=== PATIENT | female | born 1960 | race Caucasian/White ===

== ENCOUNTER 2016-06-20 11:02 | Emergency (ER) | payer OTHER ==
[~2016-06-20 11:02] MED LIST: ATIVAN0.5 M1 PO; CIPRO250 M1 PO; EPIPEN 2-PAK1 MG/ML IM; PREDNISONE10 M2 PO; PYRIDIUM200 M1 PO
--- NOTE | 2016-06-20 11:25 | ED NECK/BACK PAIN COMPLAINT ---
History of Present Illness General Chief Complaint: Low Back Pain/Injury Stated Complaint: LOW BACK PAIN Source: patient, old records Exam Limitations: language barrier Vital Signs & Intake/Output Vital Signs & Intake/Output Vital Signs Date Time Temp Pulse Resp B/P Pulse O2 O2 Flow FiO2 Ox Delivery Rate 06/20 1109 97.9 83 20 114/74 98 Room Air Allergies Coded Allergies: venom-honey bee (BEE VENOM (HONEY BEE)) (Severe, TROUBLE BREATHING 11/24/15) NO KNOWN ALLERGIES (11/24/15) Reconcile Medications Acetaminophen (Tylenol Arthritis) 650 MG TABLET.ER 1 TAB PO PRN PAIN ( Reported) Epinephrine (Epipen 2-Michi Auto-Injector) 1 MG/ML KIT 0.3 mg IM PRN ANAPHYLAXIS Ibuprofen 600 MG TABLET 1 TAB PO Q6 PRN PAIN with food Oxycodone HCl/Acetaminophen (Percocet 5-325 MG Tablet) 5 MG-325 MG TABLET 1 TAB PO Q4-6 PRN BREAKTHROUGH Tamsulosin HCl (Flomax) 0.4 MG CAP.ER.24H 1 CAP PO DAILY KIDNEY STONE Tramadol HCl 50 MG TABLET 1 TAB PO BIDP PRN PAIN (Reported) Triage Note: PT TO ED C/O LOWER BACK PAIN X 2 DAYS. DENIES ANY INJURY. HAS BEEN TAKING TYLENOL WITH NO RELIEF. Triage Nurses Notes Reviewed? yes Onset: Abrupt Duration: day(s): (2) Timing: multiple episodes today Location: LEFT FLANK Radiation: none Loss of Consciousness: no loss of consciousness HPI: This is a 56-year-old female who presents to the ER with chief complaint of left flank pain for 2 days. No nausea or vomiting, fever or chills. Denies any dysuria. She states that she took Tylenol without relief. She took some of her friend's tramadol which gave her some relief. Last night secondary to pain she wasn't able to sleep at all. Positive history of blood in her urine one month ago. She states that she had some imaging done but is unsure of what. No known history of kidney stones or kidney issues. Upon looking at the history in the computer patient was seen and evaluated for pyelonephritis in April. Past History Travel History Traveled to [place] past 21 day No Medical History Any Pertinent Medical History? 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 No Review of Systems Review of Systems Constitutional: Denies: chills, fever. Eyes: Reports: no symptoms. Ears, Nose, Throat, Mouth: Reports: no symptoms. Respiratory: Denies: cough, short of breath. Cardiovascular: Denies: chest pain, palpitations. Gastrointestinal/Abdominal: Denies: abdominal pain, nausea, vomiting. Musculoskeletal: Reports: back pain, muscle pain. Skin: Reports: no symptoms. Neurological/Psychological: Denies: anxiety, ataxia, confusion. All Other Systems: Reviewed and Negative Physical Exam Physical Exam General Appearance: well developed/nourished, alert, awake, mild distress Head: atraumatic Eyes: Bilateral: PERRL, EOMI. Ears, Nose, Throat, Mouth: hearing grossly normal, dental injury, moist mucous membrane Neck: normal inspection, supple, full range of motion Respiratory: normal breath sounds Cardiovascular: regular rate/rhythm Peripheral Pulses: 2+ radial (R), 2+ radial (L) Gastrointestinal: soft, non-tender Back: normal inspection, CVA tenderness (L) Extremities: normal range of motion Straight Leg Raising: Right: Negative. Left: Negative. Neurologic/Psych: awake, alert, oriented x 3, normal mood/affect Skin: intact, normal color, warm/dry Progress Differential Diagnosis: herniated disc, myofascial strain, pyelo/UTI, ureterolithiasis, COMPRESSION FX Plan of Care: Orders Procedure Date/time Status URINALYSIS 06/20 1131 Complete COMPREHENSIVE METABOLIC PANEL 06/20 1131 Complete CBC WITHOUT DIFFERENTIAL 06/20 1131 Complete Laboratory Tests 06/20/16 1138: Anion Gap 8, Estimated GFR > 60, BUN/Creatinine Ratio 21.4, Glucose 88, Calcium 9.4, Total Bilirubin 0.5, AST 24, ALT 29, Alkaline Phosphatase 97, Total Protein 7.4, Albumin 4.2, Globulin 3.2, Albumin/Globulin Ratio 1.3, CBC w Diff NO MAN DIFF REQ, RBC 4.35, MCV 88.7, MCH 29.8, RDW 14.5, MPV 9.1, Gran % 47.7, Lymphocytes % 37.8, Monocytes % 11.3 H, Eosinophils % 2.7, Basophils % 0.5, Absolute Granulocytes 3.0, Absolute Lymphocytes 2.4, Absolute Monocytes 0.7 H, Absolute Eosinophils 0.2, Absolute Basophils 0, PUBS MCHC 33.6 06/20/16 1137: Urine Color YEL, Urine Clarity CLEAR, Urine pH 6.5, Ur Specific [place] 1.010, Urine Protein NEG, Urine Ketones NEG, Urine Nitrite NEG, Urine Bilirubin NEG, Urine Urobilinogen 0.2, Ur Leukocyte Esterase NEG, Ur Microscopic SEDIMENT EXAMINED, Urine RBC RARE, Urine Hemoglobin TRACE-LYSED, Urine Glucose NEG Diagnostic Imaging: Viewed by Me: CT Scan. Discussed w/RAD: CT Scan. Radiology Impression: PATIENT: TAQUERIA CHENG PRESENT AGE: 56 PATIENT ACCOUNT NO: [id number] : 60 LOCATION: ER ORDERING PHYSICIAN: BAN SIERRA MD SERVICE DATE: 06/20/16 EXAM TYPE: CAT - CT ABD & PELVIS W/O IV CONTRAS EXAMINATION: CT ABDOMEN AND PELVIS WITHOUT CONTRAST CLINICAL INFORMATION: Left flank pain with hematuria. Suspect nephrocalcinosis. COMPARISON: None TECHNIQUE: Multidetector volumetric imaging was performed from the superior aspect of the liver through the pubic symphysis. Sagittal and coronal reformatted images were obtained on the technologist's workstation. DLP: 273 mGy-cm FINDINGS: LUNG BASES: The visualized lung bases are unremarkable. LIVER, GALLBLADDER, AND BILIARY TREE: The liver is normal in size, shape, and attenuation. No focal hepatic lesion or biliary ductal dilatation is present. The gallbladder is unremarkable with no evidence of radiopaque gallstones, gallbladder wall thickening, or obvious pericholecystic inflammatory changes. PANCREAS: Unremarkable. SPLEEN: Unremarkable. Accessory splenule is noted adjacent to the superior pole consistent with normal variation. ADRENAL GLANDS: Unremarkable. KIDNEYS AND URETERS: There is mild left hydroureteronephrosis. A definite obstructing calculus is not identified. There are numerous calcifications in the pelvis. The relationship of any of these to the distal ureter is difficult to demonstrated. A calcification on axial image 58 / 20 could represent distal ureteric calculus measuring 0.2 cm. No bladder calculi are demonstrated. There are no intrarenal calculi. BLADDER: Unremarkable. GASTROINTESTINAL TRACT: The stomach and duodenum are unremarkable. No abnormality of the small bowel is demonstrated. There are several mildly prominent mesenteric lymph nodes at the root of the mesentery measuring less than 1 cm in diameter. The colon is unremarkable. The appendix is not identified. There is no evidence for acute appendicitis. ABDOMINAL WALL: No significant hernia is appreciated. LYMPH NODES: No retroperitoneal or pelvic lymphadenopathy is demonstrated. VASCULAR: Limited assessment without contrast. No abnormality demonstrated. PELVIC VISCERA: There are numerous calcified phleboliths in the pelvis. The uterus and adnexa are otherwise unremarkable. There is no free fluid. OSSEOUS STRUCTURES: Unremarkable. IMPRESSION: 1. Mild left hydroureteronephrosis. A definite obstructing calculus is not identified but there are numerous pelvic calcifications which makes assessment difficult. No intrarenal calculi are demonstrated. 2. Otherwise unremarkable. DICTATED BY: TESSY THAYER MD DATE/TIME DICTATED:06/20/161230 ANGIOGRAPHER:URI DATE/TIME TRANSCRIBED:06/20/161230 CONFIDENTIAL, DO NOT COPY WITHOUT APPROPRIATE AUTHORIZATION. <Electronically signed in Other Vendor System> SIGNED BY: TESSY THAYER MD 06/20/16 1309 Departure Departure Time of Disposition: 1318 Disposition: HOME OR SELF CARE Condition: Stable Clinical Impression Primary Impression: Flank pain Referrals: JANNA LUGO,MIKE Perales (PCP/Family) SONYA BRENNAN MD Additional Instructions: Take the Percocet, FLOMAX and ibuprofen as directed. Follow-up with urology specialist listed and with outpatient urology. Drink plenty of fluids. Return to the ER for any changing or worsening symptoms. Departure Forms: Customer Survey General Discharge Information Prescriptions: Current Visit Scripts Ibuprofen 1 TAB PO Q6 PRN PAIN #30 TAB with food Oxycodone HCl/Acetaminophen (Percocet 5-325 MG Tablet) 1 TAB PO Q4-6 PRN BREAKTHROUGH #20 TAB Tamsulosin HCl (Flomax) 1 CAP PO DAILY #14 CAP
[2016-06-20] MEDS ORDERED: TRAMADOL HCL50 M1 PO (11:45)
[2016-06-20] MEDS ORDERED: TYLENOL ARTHRI650 M1 PO (11:45)
[2016-06-20 12:12] LABS: ABSOLUTE BASOPHIL COUNT 0 /CUMM (0.0-0.2); ABSOLUTE EOSINOPHIL COUNT 0.2 /CUMM (0.0-0.7); ABSOLUTE LYMPH COUNT 2.4 /CUMM (1.2-3.4); ABSOLUTE MONOCYTE COUNT 0.7 /CUMM (0.10-0.60); BASOPHIL % 0.5 % (0.0-2.0); EOSINOPHIL % 2.7 % (0-5); GRANULOCYTE % 47.7 % (42.2-75.2); HEMATOCRIT 38.6 % (37-47); MEAN CORPUSCULAR HGB 29.8 PG (27.0-31.0); MEAN CORPUSCULAR HGB CONC 33.6 G/DL (33.0-37.0); MEAN CORPUSCULAR VOLUME 88.7 FL (81.0-99.0); MEAN PLATELET VOLUME 9.1 FL (7.4-10.4); PLATELET COUNT 255 /CUMM (130-400); RBC DISTRIBUTION WIDTH 14.5 % (11.5-14.5); RED BLOOD CELL CT 4.35 /CUMM (4.20-5.40); WHITE BLOOD CELL COUNT 6.3 /CUMM (4.8-10.8)
--- NOTE | 2016-06-20 13:09 | CT SCAN REPORT ---
EXAMINATION: CT ABDOMEN AND PELVIS WITHOUT CONTRAST CLINICAL INFORMATION: Left flank pain with hematuria. Suspect nephrocalcinosis. COMPARISON: None TECHNIQUE: Multidetector volumetric imaging was performed from the superior aspect of the liver through the pubic symphysis. Sagittal and coronal reformatted images were obtained on the technologist's workstation. DLP: 273 mGy-cm FINDINGS: LUNG BASES: The visualized lung bases are unremarkable. LIVER, GALLBLADDER, AND BILIARY TREE: The liver is normal in size, shape, and attenuation. No focal hepatic lesion or biliary ductal dilatation is present. The gallbladder is unremarkable with no evidence of radiopaque gallstones, gallbladder wall thickening, or obvious pericholecystic inflammatory changes. PANCREAS: Unremarkable. SPLEEN: Unremarkable. Accessory splenule is noted adjacent to the superior pole consistent with normal variation. ADRENAL GLANDS: Unremarkable. KIDNEYS AND URETERS: There is mild left hydroureteronephrosis. A definite obstructing calculus is not identified. There are numerous calcifications in the pelvis. The relationship of any of these to the distal ureter is difficult to demonstrated. A calcification on axial image 58 05/23 20 could represent distal ureteric calculus measuring 0.2 cm. No bladder calculi are demonstrated. There are no intrarenal calculi. BLADDER: Unremarkable. GASTROINTESTINAL TRACT: The stomach and duodenum are unremarkable. No abnormality of the small bowel is demonstrated. There are several mildly prominent mesenteric lymph nodes at the root of the mesentery measuring less than 1 cm in diameter. The colon is unremarkable. The appendix is not identified. There is no evidence for acute appendicitis. ABDOMINAL WALL: No significant hernia is appreciated. LYMPH NODES: No retroperitoneal or pelvic lymphadenopathy is demonstrated. VASCULAR: Limited assessment without contrast. No abnormality demonstrated. PELVIC VISCERA: There are numerous calcified phleboliths in the pelvis. The uterus and adnexa are otherwise unremarkable. There is no free fluid. OSSEOUS STRUCTURES: Unremarkable. IMPRESSION: 1. Mild left hydroureteronephrosis. A definite obstructing calculus is not identified but there are numerous pelvic calcifications which makes assessment difficult. No intrarenal calculi are demonstrated. 2. Otherwise unremarkable.
[2016-06-20] MEDS ORDERED: PERCOCET 5-3251 EACH PO (13:20)
[2016-06-20] MEDS ORDERED: IBUPROFEN600 M1 PO (13:20)
[2016-06-20] MEDS ORDERED: FLOMAX0.4 M1 PO (13:22)
[2016-06-20 13:29] VITALS: BP 122/60
== END 2016-06-20 13:27 ==
LOC: ERH 11:02
PROVIDERS: Emergency Medicine
DX: R10.9 Unspecified abdominal pain (principal)
CPT/HCPCS: 74176; 81001; 96372; J1885

== ENCOUNTER → 2016-06-23 | Day surgery (SDC) | payer OTHER ==
[~2016-06-23] VITALS: Ht 160 cm; Wt 65.8 kg
[~2016-06-23] MED LIST changes: +CYCLOBENZAPRINE10 M1 PO; +DILAUDID2 M1 PO; +FLOMAX0.4 M1 PO; +IBUPROFEN600 M1 PO; +MOBIC15 M1 PO; +PERCOCET 5-3251 EACH PO; +PREDNISONE20 M1 PO; +TRAMADOL HCL50 M1 PO; +TYLENOL ARTHRI650 M1 PO
--- NOTE | 2016-06-23 18:35 | Operative Report ---
Operative/Inv Procedure Report Surgery Date: 06/23/16 Name of Procedure: LEFT UVJ STONE ESWL: CYSTOSCOPY WITH LEFT STENT INSERTION. FLUOROSCOPY Pre-Operative Diagnosis: LEFT COLIC SIWTH UVJ STONE, AND LEFT HYDRO. Post-Operative Diagnosis: SAME Estimated Blood Loss: scant Surgeon/Museum Librarian: SONYA BRENNAN MD Anesthesia: moderate sedation Drains: NONE Specimens: NONE Complications: NONE Operative/Procedure Note Note: The patient was taken to the operating room and placed on the ESWL table in supine position. With the patient awake, the patient's left flank was placed over the table cut-out, overlying the dome of the shockwave generator. C-arm fluroscopy, as well as renal US was used to locate the stone, and evaluate the left kidney. The stone was visible on fluroloscopy at the level of the LEFT UPJ. Renal US confimred moderate hydronephrosis without stone seen in the kidney. The left ureter stone was approximate 3 mm in size, and it's position was optimized with fluoroscopy at AP and Oblique views. After adequate anesthesia and antibiotics, the left ureter E.S.W.L. was initiated at low power levels x200 shocks. After noting the patient's tolerance to the shockwaves, the shockwave power level was quickly maximumized. Toward the end of the procedure, the composition of the stone had changed significantly indicating the pulverization of the ureter stone. A total of 3000 shockwaves were delivered to the stone in order to achieve adequate lithotrypsy. Then frog legged, draped and prepped in the usual surgical fashion. A 22 [place]ian cystoscope sheath with a 30 angle lens was inserted into the urethra and into the bladder without difficulty. Upon entering the bladder the bladder was noted to be free of tumor free of stone both orifices in orthotopic position. The left orifice was intubated with a 0.035 Glidewire which advanced into the left renal pelvis without significant difficulty. With this Glidewire a 6 x 22 Bard inlay stent was inserted without difficulty. Once the proximal coil reach the left renal pelvis, the Glidewire was removed and the stent remained in proper place both fluoroscopically and cystoscopically. The bladder was then drained, and the cystoscope was removed. The patient tolerated both procedures well, was awakened, and taken to recovery in satisfactory condition via stretcher. The pt will eventually be dischared to home with pain meds, diet orders, and intructions to catch fragments with straining the urine. The patient is to have follow-up renal ultrasound and KUB in 2 weeks, prior to follow-up visit in my office.. Findings: 3MM LEFT UVJ STONE SHATTERED AT 3000. LARGE AMOUNT OF DARK YELLOW URINE DRAINED AFTER STENT PLACED. Discharge Disposition: PACU CC: MIKA LUGO,SONYA
== END ==
LOC: STS 07:00
DX: N13.2 Hydronephrosis with renal and ureteral calculous obstruction (principal)
CPT/HCPCS: C2617; J1100; J2250; J2405

== ENCOUNTER 2016-06-30 10:37 | Emergency (ER) | payer OTHER ==
[~2016-06-30] VITALS: Ht 160 cm; Wt 65.8 kg
[~2016-06-30 10:37] MED LIST changes: -CYCLOBENZAPRINE10 M1 PO; -DILAUDID2 M1 PO; -MOBIC15 M1 PO; -PREDNISONE20 M1 PO
--- NOTE | 2016-06-30 11:25 | ED NECK/BACK PAIN COMPLAINT ---
History of Present Illness General Chief Complaint: Abdominal Pain/Flank Pain Stated Complaint: LEFT FLANK PAIN Source: patient, family, old records Exam Limitations: no limitations Vital Signs & Intake/Output Vital Signs & Intake/Output Vital Signs Date Time Temp Pulse Resp B/P Pulse O2 O2 Flow FiO2 Ox Delivery Rate 06/30 1311 97.5 68 18 104/68 95 06/30 1056 98.1 87 20 110/73 97 Room Air Room Air Allergies Coded Allergies: venom-honey bee (BEE VENOM (HONEY BEE)) (Severe, TROUBLE BREATHING 11/24/15) NO KNOWN ALLERGIES (11/24/15) Reconcile Medications Acetaminophen (Tylenol Arthritis) 650 MG TABLET.ER 1 TAB PO PRN PAIN ( Reported) Epinephrine (Epipen 2-Michi Auto-Injector) 1 MG/ML KIT 0.3 mg IM PRN ANAPHYLAXIS Hydromorphone HCl (Dilaudid) 2 MG TABLET 1 TAB PO BIDP PRN BREAKTHROUGH PAIN Ibuprofen 600 MG TABLET 1 TAB PO Q6 PRN PAIN with food Oxycodone HCl/Acetaminophen (Percocet 5-325 MG Tablet) 5 MG-325 MG TABLET 1 TAB PO Q4-6 PRN BREAKTHROUGH Tamsulosin HCl (Flomax) 0.4 MG CAP.ER.24H 1 CAP PO DAILY KIDNEY STONE Tramadol HCl 50 MG TABLET 1 TAB PO BIDP PRN PAIN (Reported) Triage Note: PT RETURNS TO ED WITH "KIDNEY PAIN", PER PT HAD LITHOTRYPSY AND STENTS PLACED BY DR SOSA ON WEDNESDAY. Triage Nurses Notes Reviewed? yes Onset: Abrupt Duration: day(s): (7), constant Timing: recent history Quality/Severity: moderate, severe, sharpness Location: L FLANK Radiation: LEFT ABD Method of Injury: unknown, KDINEY STONE Loss of Consciousness: no loss of consciousness Modifying Factors: other (PALPATION) Associated Symptoms: DENIES HPI: 66-year-old female with history of kidney stones use history is significant in that she had a lithotripsy and ureteral stent placed 7 days ago which was removed the next day after she was found to have an obstructing kidney stone. She states since then she's had persistent left flank pain that is radiating into the left side of her abdomen constant aching throbbing and sharp 10 out of 10. She's been taking her Percocet without improvement. She denies any nausea vomiting or diarrhea. She denies any urinary symptoms hematuria urgency frequency. She called her urologist today Dr. Sosa who ordered an outpatient x-ray however the patient came here after the x-ray due to her pain. She denies any fevers chills. There are no modifying factors or associated symptoms otherwise. She denies fever chills. No recent injury or trauma (DONNA VANEGAS) Past History Travel History Traveled to [place] past 21 day No Medical History Any Pertinent Medical History? 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 No (DONNA VANEGAS) Review of Systems Review of Systems Constitutional: Reports: see HPI. All Other Systems: Reviewed and Negative Comments Review of systems: See HPI, All other systems negative. Constitutional, no chills no fever, no malaise HEENT: No visual changes no sore throat no congestion Cardiovascular: No chest pain , no palpitation , Skin, no jaundice no rashes, no change in skin Respiratory: No dyspnea no cough no sputum GI: No nausea no vomiting, no diarrhea, no bloating/constipation : No dysuria No hematuria, no frequency, Muscle skeletal: No joint pain, no joint swelling, back pain, no neck pain, Neurologic: No numbness no headache Psych: No stress. Heme/endocrine: No bruising no bleeding Immunology: No lymphadenopathy (DONNA VANEGAS) Physical Exam Physical Exam Neck: normal inspection, supple, full range of motion Comments: Well-developed well-nourished person in no acute distress HEENT: Normal EENT exam; PERRL, EOMI. HEAD is atraumatic. moist mucous membranes. Neck: Supple, normal range of motion Back: Nontender, LEFT CVA tenderness. Full range of motion Cardiovascular: Regular rate and rhythms no murmurs rubs Respiratory: No respiratory distress. Patient speaking in full complete sentences. Breath sounds clear to auscultation bilaterally: NO W/R/R Abdomen: Soft, nontender nondistended, no appreciable organomegaly. Normal bowel sounds. No rebound/guarding, Extremity: No edema, full range of motion of extremities, negative straight leg raise bilaterally Neuro: Alert oriented x3, motor sensory normal, There were no obvious focal neurologic abnormalities. Skin: No appreciable rash on exposed skin, skin is warm and dry. Psych: Mood and affect is normal, memory and judgment is normal. (RAJIV YO,DONNA) Progress Differential Diagnosis: herniated disc, pyelo/UTI, sciatica, spinal cord inj, T/ L spine injury, ureterolithiasis, sepsis Plan of Care: Orders Procedure Date/time Status CBC WITHOUT DIFFERENTIAL 06/30 1130 Complete BASIC METABOLIC PANEL 06/30 1130 Complete URINALYSIS 06/30 1112 Complete Laboratory Tests 06/30/16 1145: Anion Gap 12, Estimated GFR > 60, BUN/Creatinine Ratio 24.3, Glucose 91, Calcium 9.5, CBC w Diff NO MAN DIFF REQ, RBC 4.43, MCV 88.4, MCH 29.3, RDW 14.2, MPV 8.5 , Gran % 50.3, Lymphocytes % 35.1, Monocytes % 11.4 H, Eosinophils % 2.6, Basophils % 0.6, Absolute Granulocytes 2.7, Absolute Lymphocytes 1.9, Absolute Monocytes 0.6, Absolute Eosinophils 0.1, Absolute Basophils 0, PUBS MCHC 33.1 06/30/16 1122: Urine Color JUDI, Urine Clarity CLEAR, Urine pH 6.0, Ur Specific [place] <= 1.005, Urine Protein NEG, Urine Ketones NEG, Urine Nitrite POS H, Urine Bilirubin NEG, Urine Urobilinogen 0.2, Ur Leukocyte Esterase NEG, Ur Microscopic SEDIMENT EXAMINED, Urine RBC RARE, Urine Hemoglobin NEG, Urine Glucose NEG Labs ordered old records reviewed ultrasound ordered patient medicated with Toradol 30 mgIV 06/30/2016 12:50:58 PM patient reports mild improvement in her pain I discussed with her and her at length all of her lab results and ultrasound findings, pending callback from Dr. Sosa patient medicated morphine 4 mg IV IV fluids 06/30/2016 1:22:27 PM I discussed with the patient plan of care she reports the morphine has significantly helped with pain pending callback from urology 06/30/2016 1:55:41 PM case was discussed with Dr. Sosa who advised outpatient follow-up with his office for appointment tomorrow. Discussed with the patient and her plan of care per prescription for Dilaudid was provided I informed him not to take any other pain medication if they're going to take this for breakthrough pain, I advised return anytime sooner with any concerns patient reports her symptoms have greatly improved with the morphine she is ambulatory here with steady gait I answered all their questions they'll follow up with urology cleared for discharge (DONNA VANEGAS) Diagnostic Imaging: Viewed by Me: Ultrasound. Discussed w/RAD: Ultrasound. Radiology Impression: PATIENT: TAQUERIA CHENG PRESENT AGE: 56 PATIENT ACCOUNT NO: [id number] : 60 LOCATION: [facility] ORDERING PHYSICIAN: DONNA OY SERVICE DATE: 06/30/16 EXAM TYPE: US - US- RENAL/KIDNEY EXAMINATION: US RETROPERITONEAL COMPLETE (RENAL) CLINICAL INFORMATION: Left CVA pain. History of recent stone lithotripsy.. COMPARISON: None TECHNIQUE: Real-time imaging of the kidneys and bladder. FINDINGS: RIGHT KIDNEY: 9.6 x 3.6 x 4.1 cm (SAG x AP x TRV). The kidney is normal in size, contour, and echogenicity. Renal cortical thickness is normal. No calculi or focal parenchymal lesions. No hydronephrosis. LEFT KIDNEY: 11.1 x 4.8 x 5.8 cm ( SAG x AP x TRV). The kidney is normal in size, contour, and echogenicity. Renal cortical thickness is normal. No calculi or focal parenchymal lesions. No hydronephrosis. BLADDER: Partially distended. Bilateral ureteral jets are not demonstrated. IMPRESSION: Normal ultrasound of the kidneys and bladder. No hydronephrosis. DICTATED BY: PERRY OLMEDO MD DATE/TIME DICTATED:06/30/161223 CLICKER OPERATOR:URI DATE/TIME TRANSCRIBED:06/30/161223 CONFIDENTIAL, DO NOT COPY WITHOUT APPROPRIATE AUTHORIZATION. <Electronically signed in Other Vendor System> SIGNED BY: PERRY OLMEDO MD 06/30/16 1230 (DONNA VANEGAS) Departure Departure Time of Disposition: 1343 Disposition: HOME OR SELF CARE Condition: Stable Clinical Impression Primary Impression: Flank pain Referrals: JANNA LUGO,MIKE Perales (PCP/Family) SONYA SOSA MD Additional Instructions: Follow-up with her primary care physician as well as urologist today, as discussed Dr. Sosa and like to see you in his office this week. Dilaudid for breakthrough pain use caution as this may make you drowsy. This prescription was sent to your pharmacy return anytime sooner if her symptoms worsen he develop fever chills urinary symptoms or any other complaints Departure Forms: Customer Survey General Discharge Information Prescriptions: Current Visit Scripts Hydromorphone HCl (Dilaudid) 1 TAB PO BIDP PRN BREAKTHROUGH PAIN #10 TAB (DONNA VANEGAS) PA/FITTING ROOM SUPERVISOR Co-Sign Statement Statement: ED Attending supervision documentation- [] I saw and evaluated the patient. I have also reviewed all the pertinent lab results and diagnostic results. I agree with the findings and the plan of care as documented in the PA's/FITTING ROOM SUPERVISOR's documentation. [x] I have reviewed the ED Record and agree with the PA's/FITTING ROOM SUPERVISOR's documentation. [] Additions or exceptions (if any) to the PAs/FITTING ROOM SUPERVISOR's note and plan are summarized below: [] (LARRY GARCIA DO
[2016-06-30 11:56] LABS: ABSOLUTE BASOPHIL COUNT 0 /CUMM (0.0-0.2); ABSOLUTE EOSINOPHIL COUNT 0.1 /CUMM (0.0-0.7); ABSOLUTE GRANULOCYTE CT 2.7 /CUMM (1.4-6.5); ABSOLUTE LYMPH COUNT 1.9 /CUMM (1.2-3.4); ABSOLUTE MONOCYTE COUNT 0.6 /CUMM (0.10-0.60); BASOPHIL % 0.6 % (0.0-2.0); EOSINOPHIL % 2.6 % (0-5); GRANULOCYTE % 50.3 % (42.2-75.2); HEMATOCRIT 39.1 % (37-47); MEAN CORPUSCULAR HGB 29.3 PG (27.0-31.0); MEAN CORPUSCULAR HGB CONC 33.1 G/DL (33.0-37.0); MEAN CORPUSCULAR VOLUME 88.4 FL (81.0-99.0); MEAN PLATELET VOLUME 8.5 FL (7.4-10.4); PLATELET COUNT 276 /CUMM (130-400); RBC DISTRIBUTION WIDTH 14.2 % (11.5-14.5); RED BLOOD CELL CT 4.43 /CUMM (4.20-5.40); WHITE BLOOD CELL COUNT 5.4 /CUMM (4.8-10.8)
--- NOTE | 2016-06-30 12:30 | ULTRASOUND REPORT ---
EXAMINATION: US RETROPERITONEAL COMPLETE (RENAL) CLINICAL INFORMATION: Left CVA pain. History of recent stone lithotripsy.. COMPARISON: None TECHNIQUE: Real-time imaging of the kidneys and bladder. FINDINGS: RIGHT KIDNEY: 9.6 x 3.6 x 4.1 cm (SAG x AP x TRV). The kidney is normal in size, contour, and echogenicity. Renal cortical thickness is normal. No calculi or focal parenchymal lesions. No hydronephrosis. LEFT KIDNEY: 11.1 x 4.8 x 5.8 cm (SAG x AP x TRV). The kidney is normal in size, contour, and echogenicity. Renal cortical thickness is normal. No calculi or focal parenchymal lesions. No hydronephrosis. BLADDER: Partially distended. Bilateral ureteral jets are not demonstrated. IMPRESSION: Normal ultrasound of the kidneys and bladder. No hydronephrosis.
[2016-06-30 13:11] VITALS: BP 104/68
[2016-06-30] MEDS ORDERED: DILAUDID2 M1 PO (13:43)
== END 2016-06-30 14:06 ==
LOC: ERH 10:37
PROVIDERS: Physician Assistant Medical
DX: R10.9 Unspecified abdominal pain (principal)
CPT/HCPCS: 76775; 81001; 96374; 96375; J1885

== ENCOUNTER 2016-09-30 08:45 | Emergency (ER) | payer OTHER ==
[~2016-09-30] VITALS: Ht 160 cm; Wt 68.9 kg
[~2016-09-30 08:45] MED LIST changes: +DILAUDID2 M1 PO
--- NOTE | 2016-09-30 09:16 | ED GENERAL ADULT ---
See Addendum History of Present Illness General Chief Complaint: Low Back Pain/Injury Stated Complaint: LBP Source: patient Exam Limitations: no limitations Vital Signs & Intake/Output Vital Signs & Intake/Output Vital Signs Date Time Temp Pulse Resp B/P B/P Pulse O2 O2 Flow FiO2 Mean Ox Delivery Rate 09/30 0849 97.2 92 18 110/70 99 Room Air Allergies Coded Allergies: venom-honey bee (BEE VENOM (HONEY BEE)) (Severe, TROUBLE BREATHING 11/24/15) Reconcile Medications Acetaminophen (Tylenol Arthritis) 650 MG TABLET.ER 1 TAB PO PRN PAIN ( Reported) Epinephrine (Epipen 2-Michi Auto-Injector) 1 MG/ML KIT 0.3 mg IM PRN ANAPHYLAXIS Hydromorphone HCl (Dilaudid) 2 MG TABLET 1 TAB PO BIDP PRN BREAKTHROUGH PAIN Ibuprofen 600 MG TABLET 1 TAB PO Q6 PRN PAIN with food Oxycodone HCl/Acetaminophen (Percocet 5-325 MG Tablet) 5 MG-325 MG TABLET 1 TAB PO Q4-6 PRN BREAKTHROUGH Tamsulosin HCl (Flomax) 0.4 MG CAP.ER.24H 1 CAP PO DAILY KIDNEY STONE Tramadol HCl 50 MG TABLET 1 TAB PO BIDP PRN PAIN (Reported) Triage Note: 56 Y/O FEMALE C/O LOW BACK PAIN (CENTER) X 2 DAYS. STATES UNABLE TO SLEEP OR SIT DUE TO PAIN. DENIES INJURY OR TRAUMA. HAS BEEN TAKING ADVIL WITH NO RELIEF. Triage Nurses Notes Reviewed? yes Onset: Abrupt Duration: day(s): Timing: recent history HPI: 09/30/16 56-year-old female presents to the emergency department with low back pain. The patient states she was in her usual state of health until approximately 2-3 weeks ago when she developed the sudden onset of severe low back pain. She said at that time she was seen and evaluated by Dr. CHONG in [place]. She says that she had an MRI at that time and was told that she has arthritis. Now at approximately 2:30 this morning she developed severe low back pain again it actually kept her from sleeping. It is worse with any motion and with straight leg raising. The onset of the symptoms was abrupt, the duration has been approximately 2-3 weeks, but the symptoms have been intermittent, the severity is severe as she was required to come to the emergency department for care. She has no associated abdominal pain, dysuria, rash, or tick bite. Past History Travel History Traveled to [place] past 21 day No Medical History Any Pertinent Medical History? 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 No Review of Systems Review of Systems Constitutional: Denies: fever. EENTM: Reports: no symptoms. Respiratory: Reports: no symptoms. Cardiovascular: Reports: no symptoms. GI: Denies: abdominal pain. Genitourinary: Denies: hematuria. Musculoskeletal: Reports: back pain. Skin: Denies: rash. Neurological/Psychological: Denies: weakness. Hematologic/Endocrine: Denies: bruising, bleeding. Physical Exam Physical Exam General Appearance: well developed/nourished, alert, awake, anxious, mild distress Head: atraumatic, normal appearance Eyes: Bilateral: normal appearance, PERRL, EOMI. Ears, Nose, Throat: normal pharynx, normal ENT inspection Neck: normal inspection, supple, full range of motion Respiratory: normal breath sounds, chest non-tender, no respiratory distress Cardiovascular: regular rate/rhythm Peripheral Pulses: 4+ radial (R), 4+ radial (L) Gastrointestinal: soft, non-tender Back: vertebral tenderness, decreased range of motion Extremities: normal inspection, normal range of motion, no edema Neurologic/Psych: no motor/sensory deficits, awake, alert, oriented x 3 Skin: intact, normal color, warm/dry Core Measures ACS in differential dx? No CVA/TIA Diagnosis: No Severe Sepsis Present: No Septic Shock Present: No Progress Differential Diagnoses I considered the following diagnoses in my evaluation of the patient: [Disc herniation, lumbar strain, spinal stenosis, transverse myelitis, epidural abscess] Plan of Care: Current Medications Sig/[place] Start time Last Medication Dose Stop Time Status Admin Al Hydroxide/Mg 30 ML ONCE ONE 09/30 944 UNVr Hydroxide 09/30 945 (Maalox Plus) Cyclobenzaprine HCl 10 MG ONCE ONE 09/30 944 UNVr (Flexeril 10MG Tab) 05/17 0946 Ketorolac 60 MG ONCE ONE 09/30 944 UNVr Tromethamine 09/30 945 (Toradol) Prednisone 30 MG ONCE ONE 09/30 944 UNVr 09/30 945 Initial ED EKG: none Departure Departure Disposition: HOME OR SELF CARE Condition: Stable Clinical Impression Primary Impression: Low back pain Secondary Impressions: Disc herniation Referrals: JANNA LUGO,MIKE Perales (PCP/Family) Departure Forms: Customer Survey General Discharge Information Comments 09/30/16 10:17 AM the patient was treated with IM Toradol by mouth Flexeril and by mouth prednisone. A copy of her recent MRI done August 20 was reviewed shows a very mild disc bulge at L5-S1, no central canal stenosis or foraminal stenosis. I Critical Care Note Critical Care Note Critical Care Time: non-applicable
[2016-09-30] MEDS ORDERED: PREDNISONE20 M1 PO (10:22)
[2016-09-30] MEDS ORDERED: MOBIC15 M1 PO (10:22)
[2016-09-30] MEDS ORDERED: CYCLOBENZAPRINE10 M1 PO (10:22)
[2016-09-30 10:23] VITALS: BP 102/56
== END 2016-09-30 10:45 ==
LOC: ERH 08:45
DX: M54.5 Low back pain (principal); M51.26 Other intervertebral disc displacement, lumbar region
CPT/HCPCS: 96372; J1885; J7512

== ENCOUNTER → 2016-10-22 | Day surgery (SDC) | payer OTHER ==
[~2016-10-22] VITALS: Ht 160 cm; Wt 68.9 kg
[~2016-10-22] MED LIST changes: +CYCLOBENZAPRINE10 M1 PO; +MOBIC15 M1 PO; +PREDNISONE20 M1 PO
--- NOTE | 2016-10-22 14:34 | Operative Report ---
Operative/Inv Procedure Report Surgery Date: 10/22/16 Name of Procedure: Cystoscopy. Flexible left ureteroscopy with laser standby. Fluoroscopy. Pre-Operative Diagnosis: Severe left renal colic Post-Operative Diagnosis: Left renal stone fragments too small for laser lithotripsy. Estimated Blood Loss: ba Surgeon/Director Of Dance: SONYA BRENNAN MD Anesthesia: laryngeal mask airway Specimens: None Complications: None Operative/Procedure Note Note: The patient was taken to the operating room and placed on the OR table in supine position. Timeout was performed, with the patient awake, in order to confirm correct identity, procedure, laterality, and other pertinent laila-operative information. After adequate anesthesia and antibiotics, the patient was then placed in lithotomy stirrups, draped and prepped in the usual surgical fashion. The Holmium Yag Laser was confirmed in the room on standby. A 22 Cypriot cystoscope sheath with 30 angle lens was inserted into the bladder without difficulty. Upon entering the bladder, the bladder was noted to be free of tumor , and free of stone. Both orifices were in their orthotopic position, with clear efflux of urine from the right. The left ureter orifice was intubated with an 8fr cone-tip catheter and a retrograde pyelogram with fluoroscopy was performed. The cone-tipped catheter was removed, followed by insertion of a 0.035 Glidewire, which was advanced into the left renal pelvis without difficulty. Placement was confirmed with fluoroscopy. Leaving the Glidewire in place. flexible ureteroscope was inserted over the gluidewire, and followed the wire into the bladder, up the ureter, and into the left renal pelvis, with fluoroscopy visualization. A retrograde pyelogram was again performed via the ureteroscope revealing no filling defect, normal appearing left renal anatomy. Pyeloscopy/calyxoscopy of the upper, middle, and lower poles reveal no evidence of tumor, no evidence of stones. Additionally, NO other stones, nor any tumor was visualized in the renal pelvis. At this point the standby laser was disengaged. The entire length of the ureter was also visualized carefully on the way out, and the same findings (no stones or tumor) was confirmed. The bladder was then drained after the ureteroscope was removed. The 22 Cypriot cystoscope sheath with a 30 angle lens was then reinserted into the bladder. The left orifice was intubated with a 0.035 Glidewire, which was advanced into the left renal pelvis without difficulty. Over this Glidewire, a 6 x 20 Bard inlay stent was inserted, over the Glidewire and advanced into the left renal pelvis without difficulty. The Glidewire was removed, and the stent remained in proper place both fluoroscopically, and cystoscopically. The patient tolerated the procedure well was then taken to the recovery room in satisfactory condition. She is to follow up in 4 weeks for POC.
--- NOTE | 2016-10-23 11:39 | RADIOLOGY REPORT ---
EXAMINATION: XR ABDOMEN CLINICAL INFORMATION: Ureteroscopy, left stent placement. COMPARISON: CT abdomen and pelvis dated 10/09/2016, 06/20/2016. TECHNIQUE: 4 fluoroscopic images centered over the left kidney were obtained during left ureteral stent placement. Fluoroscopy time: 25 seconds. FINDINGS: 4 fluoroscopic images obtained in the OR during left ureteral stent placement are reviewed. Initial image demonstrates contrast opacification of the kidney, no extravasation of contrast is identified. Subsequent images demonstrate positioning of the ureteral stent with the proximal tip partially coiled within the collecting system. IMPRESSION: Left ureteral stent placement. Please refer to the operative report for full procedure details.
== END ==
LOC: STS 01:21
DX: N23 Unspecified renal colic (principal); Z87.442 Personal history of urinary calculi
CPT/HCPCS: 74000; C2617; J2250